=== PATIENT | male | born 1955 | race Caucasian/White ===

== ENCOUNTER 2017-04-16 14:17 | Emergency (ER) | payer MEDICARE ==
[~2017-04-16] VITALS: Ht 172.7 cm; Wt 98.4 kg
[~2017-04-16 14:17] MED LIST: ASPIRIN325 MG PO; BLOOD PRESSURE; CRESTOR10 MG PO; PROZAC10 M1
[2017-04-16 14:27] VITALS: BP 141/81
[2017-04-16] MEDS ORDERED: DOXYCYCLINE100 M3 PO (17:20)
[2017-04-16] MEDS ORDERED: PROVENTIL HFA6.7 GM INH (17:20)
[2017-04-16] MEDS ORDERED: PREDNISONE20 M1 PO (17:20)
[2017-04-16] MEDS ORDERED: TESSALON PERLE100 M1 PO (17:20)
== END 2017-04-16 17:22 | disposition home or self-care (01) ==
LOC: ED 14:17
DX: J40 Bronchitis, not specified as acute or chronic (principal); Z98.890 Other specified postprocedural states; Z79.82 Long term (current) use of aspirin; Z79.899 Other long term (current) drug therapy

== ENCOUNTER 2019-01-21 18:22 | Emergency (ER) | payer MEDICARE ==
[~2019-01-21] VITALS: Ht 175.2 cm; Wt 95.3 kg
[2019-01-21 18:22] VITALS: BP 134/83
[~2019-01-21 18:22] MED LIST changes: +DOXYCYCLINE100 M3 PO; +PREDNISONE20 M1 PO; +PROVENTIL HFA6.7 GM INH; +TESSALON PERLE100 M1 PO
[2019-01-21] MEDS ORDERED: LISINOPRIL5 MG PO (19:12)
[2019-01-21] MEDS ORDERED: HYDROCHLOROTH12.5 M3 PO (19:13)
[2019-01-21] MEDS ORDERED: Lopressor25 MG PO (19:15)
[2019-01-21 19:16] LABS: BASO # 0.1 10*3/uL (0.0-0.1); BASO % 0.4 % (0.0-1.0); EOS # 0.1 10*3/uL (0.0-0.4); EOS % 0.4 % (1.0-4.0); HEMOGLOBIN 14.6 g/dl (14.0-18.0); LYMPH # 1.6 10*3/uL (1.3-4.4); LYMPH % 11.7 % (27.0-41.0); MEAN CELL VOLUME 93.4 fl (80.0-94.0); MEAN CORPUSCULAR HGB CONC 33.2 g/dl (33.0-37.0); MEAN PLATELET VOLUME 9.8 fl (9.6-12.3); MONO # 0.7 10*3/uL (0.1-1.0); MONO % 5.1 % (3.0-9.0); NEUT # 11.1 10*3/uL (2.3-7.9); PLATELET COUNT AUTOMATED 221 10*3/uL (130-400); RED BLOOD COUNT 4.71 10*6/uL (4.50-5.90); RED CELL DISTRI WIDTH 13.2 % (0-14.5); WHITE BLOOD COUNT 13.5 10*3/uL (4.8-10.8)
[2019-01-21 19:26] LABS: ACT PARTIAL THROMBO TIME 21.9 SECONDS (20.0-32.1)
[2019-01-21 19:31] LABS: ALBUMIN 3.8 gm/dl (3.1-4.5); ALKALINE PHOSPHATASE 87 U/L (45-117); BUN 20 mg/dl (7-24); CHLORIDE 107 mmol/L (98-107); CREATININE 1.31 mg/dL (0.70-1.30); POTASSIUM 3.6 mmol/L (3.5-5.1); SGOT/AST 27 IU/L (3-35); SGPT/ALT 27 U/L (12-78); SODIUM 141 mmol/L (136-145); TOTAL PROTEIN 7.3 gm/dL (6.4-8.2)
== END 2019-01-21 21:10 | disposition short-term general hospital (02) ==
LOC: ED 18:22
PROVIDERS: Physician Assistant
DX: S82.841A Displaced bimalleolar fracture of right lower leg, initial encounter for closed fracture (principal); E78.00 Pure hypercholesterolemia, unspecified; I10 Essential (primary) hypertension; R79.1 Abnormal coagulation profile; Z79.899 Other long term (current) drug therapy; W10.8XXA Fall (on) (from) other stairs and steps, initial encounter; Y93.89 Activity, other specified; Y92.89 Other specified places as the place of occurrence of the external cause; Y99.8 Other external cause status

== ENCOUNTER → 2019-05-05 | Outpatient (CLI) | payer MEDICARE ==
[~2019-05-05] MED LIST changes: +HYDROCHLOROTH12.5 M3 PO; +LISINOPRIL5 MG PO; +Lopressor25 MG PO
== END | disposition home or self-care (01) ==
LOC: RAD 15:26
DX: J21.9 Acute bronchiolitis, unspecified (principal); J40 Bronchitis, not specified as acute or chronic; R05 Cough